=== PATIENT | female | born 1990 | race African-American/Black ===

== ENCOUNTER → 2016-12-18 | Outpatient (CLI) | payer OTHER ==
[~2016-12-18] MED LIST: CLARITIN10 M3 PO; IRON325 MG PO; PAIN RELIEVER500 M6 PO
== END | disposition home or self-care (01) ==
LOC: CBAR 10:51
DX: Z01.812 Encounter for preprocedural laboratory examination (principal); E66.01 Morbid (severe) obesity due to excess calories
CPT/HCPCS: 36415; 84443; 86677; G0463

== ENCOUNTER → 2017-01-11 | Outpatient (CLI) | payer OTHER ==
--- NOTE | ~2017-01-11 | CR97 ---
[facility] A Service of [facility] RADIOLOGY TEXT RESULTS PATIENT: DARREN TANNER LOCATION: [facility] : [birth year] UNIT #: [id number] AGE: [address]: Glenn Lynch MD SEX: F ORDER DR: [id number] [place] [id number] [facility]. [place], [place] [address] [id number] O MR#: [id number] Acc #: [id number] NAME: DARREN TANNER : 1990 SEX: F STUDY DATE/TIME: 01/11/2017 11:10 UNIT: [facility] ROOM: STUDY DESCRIPTION: CR Esophagram Attending Physician: Glenn Lynch M.D. Referring Physician: Glenn Lynch M.D. Ordering Physician: Glenn Lynch M.D. Primary Care Physician: [facility] MEDICAL IMAGING REPORT This report is preliminary unless electronic signature is present EXAM Esophagram, 01/11/2017. INDICATIONS 26-year-old female presenting for preop evaluation for Lap-Band placement and possible paraesophageal hernia repair. Former smoker. History of asthma. TECHNIQUE Spot fluoroscopic views of the esophagus were obtained in various projections after the patient ingested gas crystals and thick and thin liquid barium on 01/11/2017. COMPARISON No comparisons. FINDINGS 60 images from the procedure were saved to the PACS. One minute of fluoroscopy time was used in the case. The esophagus demonstrates an unremarkable primary stripping wave. No significant secondary or tertiary contractions. No focal stricture, esophageal mass or mucosal abnormality. No distinct hiatal hernia. IMPRESSION 1. Essentially negative esophagram. 2. Notes indicate 60 images from the procedure were saved to the PACS. One minute of fluoroscopy time used in the case. Dictated by... Fahad Betancourt M.D. THIS IS AN ELECTRONICALLY VERIFIED REPORT [facility] A Service of [facility] RADIOLOGY TEXT RESULTS PATIENT: DARREN TANNER LOCATION: [facility] : 89 UNIT #: [id number] AGE: [address]: Glenn Lynch MD SEX: F ORDER DR: Fahad Betancourt M.D. at 01/14/2017 3:26 PM WALI/kenney TD: 01/11/2017 20:40 JOB #: [id number] MEDICAL IMAGING REPORT Page 1 of 1 COPY
--- NOTE | ~2017-01-11 | CR63 ---
[facility] A Service of [facility] RADIOLOGY TEXT RESULTS PATIENT: DARREN TANNER LOCATION: [facility] : 89 UNIT #: [id number] AGE: [address]: Glenn Lynch MD SEX: F ORDER DR: [id number] [facility] [address] [facility]. [place], [place] [address] [id number] O MR#: [id number] Acc #: [id number] NAME: DARREN TANNER : 1990 SEX: F STUDY DATE/TIME: 01/11/2017 9:34 UNIT: [facility] ROOM: STUDY DESCRIPTION: CR Chest 2 View Attending Physician: Glenn Lynch M.D. Referring Physician: Glenn Lynch M.D. Ordering Physician: Glenn Lynch M.D. Primary Care Physician: [facility] MEDICAL IMAGING REPORT This report is preliminary unless electronic signature is present EXAM Chest, 2 views; 01/11/2017. INDICATIONS 26-year-old female presenting for preop evaluation of Lap-Band surgery and possible paraesophageal hernia repair. Former smoker. History of asthma. TECHNIQUE Two-view chest was performed. COMPARISON We have no comparison studies. FINDINGS Cardiac silhouette is within normal limits. Vascularity is unremarkable. Lungs are clear. No pneumothorax. No effusion. Incidental pericardiac fat pad on the right. IMPRESSION 1. Negative chest. We have no comparisons. Dictated by... Fahad Betancourt M.D. THIS IS AN ELECTRONICALLY VERIFIED REPORT Fahad Betancourt M.D. at 01/14/2017 3:26 PM WALI/kenney TD: 01/11/2017 20:32 JOB #: [id number] [facility] A Service [facility] RADIOLOGY TEXT RESULTS PATIENT: DARREN TANNER LOCATION: [facility] : 89 UNIT #: [id number] AGE: [address]: Glenn Lynch MD SEX: F ORDER DR: MEDICAL IMAGING REPORT Page 1 of 1 COPY
[2017-01-11 08:54] LABS: HEMATOCRIT 31.6 % (35.0-45.0); HEMOGLOBIN 9.9 gm/dL (12.0-16.0); MEAN CELL VOLUME 78.3 FL (83-96); MEAN CORPUSCULAR HEMOGLOBIN 24.5 PG (28-34); MEAN CORPUSCULAR HGB CONC 31.3 g/dL (30-36); MEAN PLATELET VOLUME 8.6 FL (6.5-11.5); RED BLOOD COUNT 4.04 X10e (3.90-5.30); RED CELL DISTRIBUTION WIDTH 16.9 % (11.0-15.5); WHITE BLOOD COUNT 5.9 X10e3 (4.0-10.5)
[2017-01-11 09:42] LABS: ALBUMIN SERUM 3.3 g/dL (3.5-5.0); BILIRUBIN,TOTAL 0.4 mg/dL (0.2-2.0); BUN/CREATININE RATIO 15.71; CALCIUM SERUM 8.7 mg/dL (8.4-10.2); CREATININE SERUM 0.7 mg/dL (0.6-1.4); GLOM FILT RATE Estimated 137.6 mL/min (>60); POTASSIUM 4.5 mmol/L (3.5-5.1); PROTEIN TOTAL SERUM 7.1 g/dL (6.0-8.3)
== END | disposition home or self-care (01) ==
LOC: CRAD 08:11 → CAMB 09:00
PROVIDERS: Surgery
DX: Z01.818 Encounter for other preprocedural examination (principal)
CPT/HCPCS: 36415; 71020; 74220; 80053; 80061; 84443; 84703; 85027

== ENCOUNTER → 2017-01-23 | Day surgery (SDC) | payer OTHER ==
--- NOTE | ~2017-01-23 | CR7 ---
[facility] A Service of [facility] RADIOLOGY TEXT RESULTS PATIENT: DARREN TANNER LOCATION: [facility] : 89 UNIT #: [id number] AGE: [address]: Glenn Lynch MD SEX: F ORDER DR: [id number] [facility] [address] [place], [place] [address] [id number] O MR#: [id number] Acc #: [id number] NAME: DARREN TANNER : 1990 SEX: F STUDY DATE/TIME: 01/23/2017 10:08 UNIT: [facility] ROOM: STUDY DESCRIPTION: CR Abdomen Single AP View Attending Physician: Glenn Lynch M.D. Ordering Physician: Glenn Lynch M.D. Primary Care Physician: [facility] MEDICAL IMAGING REPORT This report is preliminary unless electronic signature is present EXAM Supine radiograph of the abdomen. HISTORY: Post lap band . FINDINGS AP radiograph of the abdomen is presented. Status post placement of lap band device. Band component and anticipated location of gastroesophageal junction based on esophagram dated 01/11/17. It is approximately 60 degree from the vertical. Catheter component radiographically intact. Port component implanted over left paracentral low abdomen. Visualized bowel gas pattern normal. No free air. Dictated by... Glenn Brown M.D. THIS IS AN ELECTRONICALLY VERIFIED REPORT Glenn Brown M.D. at 01/24/2017 2:45 PM MENG/lori TD: 01/23/2017 12:43 JOB #: [id number] MEDICAL IMAGING REPORT Page 1 of 1 COPY
--- NOTE | ~2017-01-23 | OR ---
Unit #: [id number] #: [id number] Patient: DARREN TANNER [id number] [address] [address] [id number] O MR#: [id number] NAME: DARREN TANNER ROOM: Date of Procedure: 01/22/2017 Admission Date: 01/23/2017 Surgeon: Glenn Lynch M.D. : 1990 Attending Physician: Glenn Lynch M.D. Primary Care Physician: [facility] OPERATIVE REPORT PREOPERATIVE DIAGNOSES Chronic morbid obesity. Body mass index of 63. POSTOPERATIVE DIAGNOSES 1. Chronic morbid obesity. Body mass index of 63. 2. Paraesophageal hiatal hernia. PROCEDURES PERFORMED 1. Laparoscopic adjustable gastric band. 2. Laparoscopic paraesophageal hiatal hernia repair. ROTARY OPERATOR Anmol Love M.D. ANESTHESIA General. ESTIMATED BLOOD LOSS Minimal. IV FLUIDS 800 crystalloid. COMPLICATIONS None. INDICATIONS FOR PROCEDURE The patient is a 26-year-old with chronic morbid obesity. DESCRIPTION OF PROCEDURE The patient was taken to the operating room and placed in supine position. General anesthesia was induced. The abdomen was prepped and draped. A 3-cm incision was then made left of the midline. A 10-mm Visiport was then placed intraabdominal under direct vision. The abdomen was insufflated to 15 mmHg with CO2. The patient was then placed in a steep reversed Trendelenburg. General inspection of the abdomen revealed what appeared to be a paraesophageal hernia. This was identified with a defect at the diaphragm using anterior palpation with the instrument. We then made a small incision in the subxiphoid region. A Kellie liver retractor was then placed intraabdominal and used to retract the left lobe of the liver upward to further expose the paraesophageal hernia and GE junction. I then placed a 5-mm port in the right upper quadrant, a 10-mm Unit #: [id number] #: [id number] Patient: DARREN TANNER port in the left upper quadrant, and another 5-mm port in the left lower quadrant. The stomach was retracted medial and downward. Upon retracting the stomach, we took down the paraesophageal ligament, exposing the right and left magaly at the paraesophageal hernia. Any hernia sac was reduced. We then repaired the paraesophageal hernia using interrupted #0 Ethibond sutures in a [id number] type fashion. This formed a snug repair to the anterior esophagus. We then retracted the stomach medially and further exposed the angle of His using Bovie electrocautery. The stomach was then retracted laterally. We then took down the hepatogastric ligament with Bovie electrocautery. This exposed the right magaly. Using blunt dissection, I created a retrogastric tunnel from this point to the angle of His. The band was then placed intraabdominal through the 10-mm port site. This was then brought through the retrogastric tunnel in a pars flaccida technique. The band was then closed anteriorly to form a 20-mL to 25-mL anterior gastric pouch. The fundus was then secured to the anterior pouch to prevent movement around the stomach using two interrupted #0 Ethibond sutures. A third suture was then used as a gathering stitch from the lesser curve to the anterior stomach, gathering and imbricating the remaining fundus of the stomach. The tubing was then brought out through the midline 10-mm port site. All ports and the Kellie liver retractor were removed under direct vision with no evidence of abdominal hemorrhage. A polypropylene mesh was then secured to the posterior face of the laparoscopic band port. This was secured using #0 Ethibond suture. This was then cut to shape. The port was then connected to the tubing and placed into a subcutaneous pocket just anterior to the rectus sheath. Its position was then confirmed. All tubing was then placed intraabdominal. The wounds were then closed with interrupted 4-0 Vicryl. The patient tolerated the procedure well and was sent to the recovery room in good condition. Dictated by... Glynn Hayes/arsenio TD: 01/23/2017 16:12 JOB #: [id number] OPERATIVE REPORT Page 1 of 1 X Glenn Lynch MD PROCEDURE OPERATIVE NOTE
== END | disposition home or self-care (01) ==
LOC: CSUR 06:24
PROVIDERS: Surgery
DX: E66.01 Morbid (severe) obesity due to excess calories (principal); K44.9 Diaphragmatic hernia without obstruction or gangrene; J45.909 Unspecified asthma, uncomplicated; F17.210 Nicotine dependence, cigarettes, uncomplicated; D64.9 Anemia, unspecified; F32.9 Major depressive disorder, single episode, unspecified; Z68.44 Body mass index [BMI] 60.0-69.9, adult; Z79.899 Other long term (current) drug therapy
CPT/HCPCS: 74000; 84703; 85014; 85018; C1781; J0330; J0690; J1650; J1885; J2250; J2405; J2710; J3010; L8699